=== PATIENT | female | born 1990 | race African-American/Black ===

== ENCOUNTER 2022-02-27 08:39 | Emergency (ER) | payer SELFPAY ==
[2022-02-27] MEDS ORDERED: Ketorolac Tromethamine 30 MG/ML VIAL ONE (10:03)
== END 2022-02-27 10:27 | disposition home or self-care (01) ==
LOC: ERS 08:39
DX: M25.511 Pain in right shoulder (principal); M25.512 Pain in left shoulder; M79.10 Myalgia, unspecified site; Y04.0XXA Assault by unarmed brawl or fight, initial encounter; Y93.61 Activity, american tackle football
CPT/HCPCS: 96372; J1885

== ENCOUNTER 2022-03-28 09:45 | Emergency (ER) | payer SELFPAY ==
[2022-03-28] MEDS ORDERED: Ondansetron ODT 4 MG TAB ONE (11:19)
[2022-03-28] MEDS ORDERED: Dicyclomine 20 MG TAB ONE (11:19)
== END 2022-03-28 12:16 | disposition home or self-care (01) ==
LOC: ERS 09:45
DX: B34.9 Viral infection, unspecified (principal); R11.2 Nausea with vomiting, unspecified; R19.7 Diarrhea, unspecified
CPT/HCPCS: 99283; Q0162

== ENCOUNTER 2022-04-03 10:33 | Emergency (ER) | payer SELFPAY ==
[2022-04-03] MEDS ORDERED: Ketorolac Tromethamine 30 MG/ML VIAL ONE (11:10)
[2022-04-03] MEDS ORDERED: Cyclobenzaprine 10 MG TAB ONE (11:35)
== END 2022-04-03 11:49 | disposition home or self-care (01) ==
LOC: ERS 10:33
DX: S50.311A Abrasion of right elbow, initial encounter (principal); M54.2 Cervicalgia; V43.62XA Car passenger injured in collision with other type car in traffic accident, initial encounter
CPT/HCPCS: 96372; 99283; J1885

== ENCOUNTER 2022-04-14 07:21 | Observation (INO) | payer SELFPAY ==
[2022-04-14] MEDS ORDERED: levETIRAcetam 500 MG/5 ML VIAL SLOW IVP SCH (08:00)
[2022-04-14] MEDS ORDERED: Lorazepam (BATCHED) 2 MG/ML SYR ONE (08:09)
[2022-04-14] MEDS ORDERED: levETIRAcetam 500 MG/5 ML VIAL ONE (08:10)
[2022-04-14] MEDS ORDERED: Ondansetron PF 4 MG/2 ML Vial ONE (08:33)
[2022-04-14 08:57] LABS: Hemoglobin 12.7 g/dL (12.0-16.0); Mean Corpuscular HGB CONC 30.9 g/dL (32.0-36.0); Mean Corpuscular Hemoglobin 27.5 pg (27.0-31.0); Mean Corpuscular Volume 88.8 fL (78.0-98.0); Mean Platelet Volume 7.9 fL (7.4-10.4); Platelet Count 391 thou/uL (130-400); RBC Distribution Width 16.2 % (11.5-14.5); Red Blood Cell (RBC) Count 4.63 mill/uL (4.20-5.40); White Blood Cell (WBC) Count 23.1 thou/uL (4.8-10.8)
[2022-04-14 09:02] LABS: BHCG - Serum Negative (NEGATIVE); Pregs Control Background? CLEAR/WHITE (CLR/WHITE); Pregs Control Bar Appear? YES (CONTROL BAR)
[2022-04-14 09:08] LABS: ALT (SGPT) 18 U/L (8-55); AST (SGOT) 19 U/L (5-34); Albumin 4.5 g/dL (3.5-5.0); Alkaline Phosphatase 68 U/L (40-110); Anion Gap 27 mmol/L (10-20); BUN (Urea Nitrogen) 8 mg/dL (7.0-18.7); Bilirubin, Total 0.2 mg/dL (0.2-1.2); Calc. Creatinine Clearance 0 mL/min (70-130); Calcium 9.5 mg/dL (7.8-10.44); Carbon Dioxide 13 mmol/L (22-29); Chloride 109 mmol/L (98-107); Estimated GFR 88; Globulin 3.6 g/dL (2.4-3.5); Glucose 119 mg/dL (70-105); Potassium 3.8 mmol/L (3.5-5.1); Protein, Total 8.1 g/dL (6.0-8.3); Sodium 145 mmol/L (136-145)
[2022-04-14 09:13] LABS: Band 3 % (5-11); Burr Cells MODERATE= 6-15 cells (100X) (0-1/hpf); Lymphocytes 16 % (21-51); MDiff Complete? YES; Monocytes 10 % (0-10); Neutrophil 71 % (42-75); Platelet Morphology Comment Appears Adequate; Polychromasia SLIGHT = 2-3 cells (100X) (0-2/hpf)
[2022-04-14] MEDS ORDERED: Acetaminophen 325 MG TAB PO PRN (10:58)
[2022-04-14] MEDS ORDERED: Ondansetron PF 4 MG/2 ML Vial IVP PRN (10:58)
[2022-04-14] MEDS ORDERED: Senokot S 8.6-50 MG TAB PO PRN (10:58)
[2022-04-14] MEDS ORDERED: Lorazepam 2 MG/ML VIAL SLOW IVP PRN (13:13)
[2022-04-14] MEDS ORDERED: Lorazepam (BATCHED) 2 MG/ML SYR SLOW IVP PRN (13:24)
[2022-04-14 13:40] LABS: Magnesium 2.5 mg/dL (1.6-2.6)
[2022-04-14 15:10] LABS: SARS-CoV-2 NAA Rapid Test Not Detected (NotDetected)
[2022-04-14 17:44] VITALS: BMI 21.6
[2022-04-14] MEDS: Sodium Chloride 0.9% 1,000 ML IV SCH (19:13)
[2022-04-14] MEDS ORDERED: levETIRAcetam in NS 1,000 MG in Premix Bag 1 BAG IVPB SCH (21:00)
[2022-04-14] MEDS: levETIRAcetam 500 MG/5 ML VIAL SLOW IVP SCH (21:53)
[2022-04-15 01:55] LABS: Bilirubin Negative (Negative); Blood, Urine 2+ (Negative); Clarity Turbid (Clear); Glucose, Urine (Dipstick) Normal (Negative); Ketone, Urine Trace mg/dL (Negative); Leukocyte 500 Leu/uL (Negative); Nitrite 2+ (Negative); Protein, Urine (Dipstick) 20 mg/dL (Neg-Trace); RBC/HPF 21-50 HPF (0-3); Specific Gravity, Urine 1.013 (1.002-1.036); Squamous Epithelial 0-3 HPF (0-3); Urobilinogen Normal mg/dL (Less than 2); WBC/HPF Greater than 50 HPF (0-3)
[2022-04-15 01:56] LABS: Bacteria/HPF 1+ HPF (None Seen)
[2022-04-15 03:35] LABS: Amphetamine Not Detected (NotDetected); Barbiturates Screen Not Detected (NotDetected); Benzodiazepine Screen Detected (NotDetected); Cocaine Metabolite Screen Detected (NotDetected); Methadone Not Detected (NotDetected); Methamphetamine Not Detected (NotDetected); Opiate Screen Not Detected (NotDetected); Oxycodone Screen Not Detected (NotDetected); Phencyclidine (PCP) Not Detected (NotDetected); THC/Cannabinoid Screen Detected (NotDetected); Tricyclic Screen Not Detected (NotDetected)
[2022-04-15] MEDS: Sodium Chloride 0.9% 1,000 ML IV SCH (04:59)
[2022-04-15 05:43] LABS: #Eosinphils 0.1 thou/uL (0.0-0.7); #Lymphocytes 2.3 thou/uL (1.20-3.40); #Monocytes 0.8 thou/uL (0.11-0.59); #Neutrophils 8.2 thou/uL (1.40-6.50); %Basophils 0.3 % (0.0-1.0); %Eosinophils 0.6 % (0.0-10.0); %Lymphocytes 20.2 % (21.0-51.0); %Monocytes 6.8 % (0.0-10.0); %Neutrophils 72.1 % (42.0-75.0); Hemoglobin 10.2 g/dL (12.0-16.0); Mean Corpuscular HGB CONC 31.1 g/dL (32.0-36.0); Mean Corpuscular Hemoglobin 26.9 pg (27.0-31.0); Mean Corpuscular Volume 86.3 fL (78.0-98.0); Mean Platelet Volume 7.7 fL (7.4-10.4); Platelet Count 287 thou/uL (130-400); Red Blood Cell (RBC) Count 3.81 mill/uL (4.20-5.40); White Blood Cell (WBC) Count 11.4 thou/uL (4.8-10.8)
[2022-04-15 06:01] LABS: Anion Gap 13 mmol/L (10-20); BUN (Urea Nitrogen) 8 mg/dL (7.0-18.7); Calc. Creatinine Clearance 103 mL/min (70-130); Calcium 8.3 mg/dL (7.8-10.44); Carbon Dioxide 19 mmol/L (22-29); Chloride 113 mmol/L (98-107); Estimated GFR 104; Glucose 74 mg/dL (70-105); Potassium 3.7 mmol/L (3.5-5.1); Sodium 141 mmol/L (136-145)
[2022-04-15 08:01] LABS: Iron 37 ug/dL (50-170); Iron Binding Capacity, Total 305 mcg/dL (265-497)
[2022-04-15] MEDS ORDERED: Enoxaparin Sodium 40 MG/0.4 ML SYRINGE SC SCH (09:00)
[2022-04-15] MEDS: levETIRAcetam 500 MG/5 ML VIAL SLOW IVP SCH (09:18)
[2022-04-15 11:45] VITALS: BP 114/72; TEMP 97.7
== END 2022-04-15 12:30 | disposition home or self-care (01) ==
LOC: ERS 07:21 → SUATTDRO 07:21 → INTOOBSV 10:58 → ERHOLD 10:58 → NEURO 12:00
PROVIDERS: ADMIT Internal Medicine; ATTEND Internal Medicine
DX: G40.909 Epilepsy, unspecified, not intractable, without status epilepticus (principal); D72.829 Elevated white blood cell count, unspecified; E86.0 Dehydration; F19.10 Other psychoactive substance abuse, uncomplicated; D50.9 Iron deficiency anemia, unspecified; Z91.14 Patient's other noncompliance with medication regimen; Z20.822 Contact with and (suspected) exposure to COVID-19
CPT/HCPCS: 36415; 36416; 70450; 70551; 80048; 80053; 80306; 81001; 82728; 83540; 83550; 83735; 84146; 84443; 84703; 85025; 93005; 95816; 95819; 95957; 96361; 96365; 96366; 96372; 96375; G0378; J1650; J1953; J2060; J2405; J7050; U0002

== ENCOUNTER 2022-06-11 07:01 | Emergency (ER) | payer SELFPAY ==
[2022-06-11] MEDS ORDERED: levETIRAcetam 500 MG/5 ML VIAL ONE (07:44)
[2022-06-11] MEDS ORDERED: Lorazepam (BATCHED) 2 MG/ML SYR ONE (08:07)
[2022-06-11 08:09] LABS: #Basophils 0.1 thou/uL (0.0-0.2); #Eosinphils 0.3 thou/uL (0.0-0.7); #Monocytes 0.9 thou/uL (0.11-0.59); #Neutrophils 7.7 thou/uL (1.40-6.50); %Basophils 0.7 % (0.0-1.0); %Eosinophils 2.4 % (0.0-10.0); %Lymphocytes 30.6 % (21.0-51.0); %Monocytes 7.3 % (0.0-10.0); %Neutrophils 59.1 % (42.0-75.0); Hemoglobin 12.7 g/dL (12.0-16.0); Mean Corpuscular HGB CONC 30.4 g/dL (32.0-36.0); Mean Corpuscular Hemoglobin 27.4 pg (27.0-31.0); Mean Corpuscular Volume 90.2 fL (78.0-98.0); Mean Platelet Volume 7.4 fL (7.4-10.4); Platelet Count 439 thou/uL (130-400); RBC Distribution Width 15.8 % (11.5-14.5); Red Blood Cell (RBC) Count 4.64 mill/uL (4.20-5.40)
[2022-06-11 08:14] LABS: BHCG - Serum Negative (NEGATIVE); Pregs Control Background? CLEAR/WHITE (CLR/WHITE); Pregs Control Bar Appear? YES (CONTROL BAR)
[2022-06-11 08:32] LABS: ALT (SGPT) 9 U/L (8-55); AST (SGOT) 12 U/L (5-34); Albumin 4.4 g/dL (3.5-5.0); Alkaline Phosphatase 70 U/L (40-110); Anion Gap 27 mmol/L (10-20); BUN (Urea Nitrogen) 10 mg/dL (7.0-18.7); Bilirubin, Total 0.2 mg/dL (0.2-1.2); Calc. Creatinine Clearance 0 mL/min (70-130); Calcium 9.1 mg/dL (7.8-10.44); Carbon Dioxide 11 mmol/L (22-29); Chloride 108 mmol/L (98-107); Estimated GFR 71; Globulin 3.6 g/dL (2.4-3.5); Glucose 109 mg/dL (70-105); Potassium 3.8 mmol/L (3.5-5.1); Sodium 142 mmol/L (136-145)
== END 2022-06-11 10:00 | disposition home or self-care (01) ==
LOC: ERS 07:01
DX: R56.9 Unspecified convulsions (principal)
CPT/HCPCS: 80053; 80177; 84703; 85025; 96374; 96375; J1953; J2060

== ENCOUNTER 2022-08-31 12:22 | Observation (INO) | payer SELFPAY ==
[2022-08-31] MEDS ORDERED: Diazepam 10 MG/2 ML SYRINGE ONE ×2 (13:04→14:06)
[2022-08-31] MEDS ORDERED: levETIRAcetam 500 MG/5 ML VIAL ONE ×2 (13:19→13:21)
[2022-08-31] MEDS ORDERED: Lactated Ringer's 500 ML IV SCH (15:45)
[2022-08-31] MEDS ORDERED: Acetaminophen 325 MG TAB PO PRN (15:47)
[2022-08-31] MEDS ORDERED: Lorazepam 2 MG/ML VIAL SLOW IVP PRN (16:07)
[2022-08-31] MEDS ORDERED: Ondansetron PF 4 MG/2 ML Vial IVP PRN (16:28)
[2022-08-31] MEDS ORDERED: levETIRAcetam 500 MG TAB PO SCH (17:30)
[2022-08-31] MEDS ORDERED: levETIRAcetam 500 MG/5 ML VIAL SLOW IVP SCH (17:30)
[2022-08-31 17:36] LABS: #Lymphocytes 0.9 thou/uL (1.20-3.40); #Monocytes 0.8 thou/uL (0.11-0.59); #Neutrophils 13.4 thou/uL (1.40-6.50); %Basophils 0.1 % (0.0-1.0); %Eosinophils 0.1 % (0.0-10.0); %Lymphocytes 6.2 % (21.0-51.0); %Monocytes 5.1 % (0.0-10.0); %Neutrophils 88.5 % (42.0-75.0); Hemoglobin 11.5 g/dL (12.0-16.0); Mean Corpuscular HGB CONC 31.5 g/dL (32.0-36.0); Mean Corpuscular Hemoglobin 26.8 pg (27.0-31.0); Mean Corpuscular Volume 85.1 fl (78.0-98.0); Mean Platelet Volume 7.6 fL (7.4-10.4); Platelet Count 334 10x3/uL (130-400); RBC Distribution Width 16.5 % (11.5-14.5); White Blood Cell (WBC) Count 15.1 10x3/uL (4.8-10.8)
[2022-08-31 17:53] LABS: Phosphorus 2.5 mg/dL (2.3-4.7)
[2022-08-31 17:57] LABS: ALT (SGPT) 11 U/L (8-55); AST (SGOT) 13 U/L (5-34); Albumin 3.6 g/dL (3.5-5.0); Alkaline Phosphatase 65 U/L (40-110); Anion Gap 11 mmol/L (10-20); BUN (Urea Nitrogen) 9 mg/dL (7.0-18.7); Bilirubin, Total 0.3 mg/dL (0.2-1.2); Calc. Creatinine Clearance 110 mL/min (70-130); Calcium 8.4 mg/dL (7.8-10.44); Carbon Dioxide 22 mmol/L (22-29); Chloride 110 mmol/L (98-107); Estimated GFR 106; Globulin 2.9 g/dL (2.4-3.5); Glucose 87 mg/dL (70-105); Potassium 3.8 mmol/L (3.5-5.1); Protein, Total 6.5 g/dL (6.0-8.3); Sodium 139 mmol/L (136-145)
[2022-08-31 19:44] LABS: Acetaminophen Less than 10.0 mcg/mL (10.0-30.0); Alcohol Less than 10 mg/dL (Less than 10); Salicylate Less than 8.0 mg/dL (15.0-30.0)
[2022-08-31] MEDS: Lactated Ringer's 1,000 ML IV SCH (20:06)
[2022-09-01 04:07] VITALS: BMI 26.1
[2022-09-01 07:18] LABS: #Eosinphils 0.1 thou/uL (0.0-0.7); #Lymphocytes 2.6 thou/uL (1.20-3.40); #Monocytes 0.6 thou/uL (0.11-0.59); #Neutrophils 10.3 thou/uL (1.40-6.50); %Basophils 0.2 % (0.0-1.0); %Eosinophils 0.5 % (0.0-10.0); %Lymphocytes 19.4 % (21.0-51.0); %Neutrophils 75.9 % (42.0-75.0); Mean Corpuscular HGB CONC 31.8 g/dL (32.0-36.0); Mean Corpuscular Hemoglobin 27.1 pg (27.0-31.0); Mean Corpuscular Volume 85.3 fl (78.0-98.0); Mean Platelet Volume 7.5 fL (7.4-10.4); Platelet Count 318 10x3/uL (130-400); RBC Distribution Width 16.2 % (11.5-14.5); Red Blood Cell (RBC) Count 4.04 mill/uL (4.20-5.40); White Blood Cell (WBC) Count 13.5 10x3/uL (4.8-10.8)
[2022-09-01] MEDS ORDERED: levETIRAcetam 500 MG/5 ML VIAL SLOW IVP SCH (09:00)
[2022-09-01] MEDS: Lactated Ringer's 1,000 ML IV SCH ×2 (09:22→09:28)
[2022-09-01] MEDS ORDERED: levETIRAcetam 500 MG TAB PO SCH ×2 (10:15→21:00)
[2022-09-01 10:49] LABS: Bilirubin Negative (Negative); Blood, Urine Negative (Negative); Clarity Clear (Clear); Glucose, Urine (Dipstick) Normal (Negative); Ketone, Urine 20 mg/dL (Negative); Leukocyte Negative Leu/uL (Negative); Nitrite Negative (Negative); Protein, Urine (Dipstick) 20 mg/dL (Neg-Trace); Specific Gravity, Urine 1.028 (1.002-1.036); Urobilinogen Normal mg/dL (Less than 2)
[2022-09-01 10:57] LABS: Amphetamine Not Detected (NotDetected); Barbiturates Screen Not Detected (NotDetected); Benzodiazepine Screen Detected (NotDetected); Cocaine Metabolite Screen Detected (NotDetected); Methadone Not Detected (NotDetected); Methamphetamine Not Detected (NotDetected); Opiate Screen Not Detected (NotDetected); Oxycodone Screen Not Detected (NotDetected); Phencyclidine (PCP) Not Detected (NotDetected); THC/Cannabinoid Screen Detected (NotDetected); Tricyclic Screen Not Detected (NotDetected)
[2022-09-01 12:29] VITALS: BP 114/69; TEMP 98.7
== END 2022-09-01 14:05 | disposition home or self-care (01) ==
LOC: ERS 12:22 → NEURO 15:49
PROVIDERS: ADMIT Student in an Organized Health Care Education/Training Program; ATTEND Student in an Organized Health Care Education/Training Program
DX: G40.409 Other generalized epilepsy and epileptic syndromes, not intractable, without status epilepticus (principal); D50.9 Iron deficiency anemia, unspecified; F12.10 Cannabis abuse, uncomplicated; F17.210 Nicotine dependence, cigarettes, uncomplicated; Z91.199 Patient's noncompliance with other medical treatment and regimen due to unspecified reason; Z79.899 Other long term (current) drug therapy
CPT/HCPCS: 36415; 80053; 80177; 80306; 80307; 81003; 83735; 84100; 84443; 85025; 93005; 94760; 96365; 96366; 96375; 96376; G0378; J1953; J3360; J7120

== ENCOUNTER 2023-03-13 10:49 | Emergency (ER) | payer OTHER, SELFPAY | END 2023-03-13 11:28 | disposition home or self-care (01) | LOC: ERS 10:49 | DX: S61.411A Laceration without foreign body of right hand, initial encounter (principal); W26.0XXA Contact with knife, initial encounter ==

== ENCOUNTER 2024-10-30 11:08 | Emergency (ER) | payer OTHER ==
[2024-10-30 13:53] LABS: Bacteria/HPF None Seen HPF (None Seen); Bilirubin Negative (Negative); Blood, Urine Negative (Negative); CAUTI Indications for Culture Pelvic or flank pain; Clarity Clear (Clear); Glucose, Urine (Dipstick) Normal (Negative); Ketone, Urine Negative (Negative); Leukocyte Negative Leu/uL (Negative); Nitrite Negative (Negative); Protein, Urine (Dipstick) Negative (Neg-Trace); RBC/HPF None Seen HPF (0-3); Specific Gravity, Urine 1.008 (1.002-1.036); Squamous Epithelial 0-3 HPF (0-3); Urobilinogen Normal mg/dL (Less than 2); WBC/HPF 0-3 HPF (0-3); pH, Urine 5.5 (5.0-9.0)
[2024-10-30 13:58] LABS: Pregnancy Test - Urine (BHCG) Negative (Negative); Pregu Control Bar Appear? YES (CONTROL BAR); Specific Gravity 1.008 (1.002-1.036); Sperm/HPF Rare HPF (None Seen); Urine Culture Reflex No No
[2024-10-30 13:59] LABS: Pregu Control Background? CLEAR/WHITE (CLR/WHITE)
[2024-10-30] MEDS ORDERED: cefTRIAXone (ROCEPHIN) 500 MG VIAL ONE (14:36)
[2024-10-30] MEDS ORDERED: Lidocaine 1% PF 5 ML VIAL ONE (14:37)
[2024-10-31 00:40] LABS: Chlamydia by PCR, Vaginal Swab Not Detected (NotDetected); GC by PCR, Vaginal Swab Not Detected (NotDetected)
== END 2024-10-30 14:55 | disposition home or self-care (01) ==
LOC: ERS 11:08
DX: H60.92 Unspecified otitis externa, left ear (principal); N76.0 Acute vaginitis; G40.909 Epilepsy, unspecified, not intractable, without status epilepticus; F17.290 Nicotine dependence, other tobacco product, uncomplicated; Z20.2 Contact with and (suspected) exposure to infections with a predominantly sexual mode of transmission; Z79.899 Other long term (current) drug therapy
CPT/HCPCS: 71046; 81001; 81025; 87081; 87428; 87430; 87480; 87491; 87510; 87591; 87660; 96372; J0696

== ENCOUNTER 2025-09-06 06:52 | Emergency (ER) | payer OTHER ==
[2025-09-06] MEDS ORDERED: HYDROcodone/Acetaminophen 5/325 mg Tablet ONE (07:16)
== END 2025-09-06 07:22 | disposition home or self-care (01) ==
LOC: ERS 06:52
DX: K04.7 Periapical abscess without sinus (principal); K03.81 Cracked tooth; G40.909 Epilepsy, unspecified, not intractable, without status epilepticus; F17.290 Nicotine dependence, other tobacco product, uncomplicated; Z79.899 Other long term (current) drug therapy
CPT/HCPCS: 99282